=== PATIENT | male | born 1955 | race African-American/Black ===

== ENCOUNTER → 2017-05-22 | Outpatient (CLI) | payer OTHER ==
--- NOTE | 2017-05-22 12:32 | XR ---
EXAMINATION TYPE: XR chest 2V DATE OF EXAM: 05/22/2017 COMPARISON: 03/23/2015 HISTORY: Chronic cough TECHNIQUE: Frontal and lateral views of the chest are obtained. FINDINGS: There is no focal air space opacity, pleural effusion, or pneumothorax seen. The cardiac silhouette size is within normal limits. The osseous structures are intact. Multilevel moderate degenerative changes of the thoracic spine are noted as well as partial visualiza tion of cervical fusion device. IMPRESSION: No acute cardiopulmonary process.
== END | disposition home or self-care (01) ==
LOC: RADXRMAIN 09:26
PROVIDERS: ATTEND Family Medicine
DX: Z00.00 Encounter for general adult medical examination without abnormal findings (principal)
CPT/HCPCS: 71020

== ENCOUNTER 2017-06-16 22:43 | Emergency (ER) | payer OTHER ==
[2017-06-16 22:54] VITALS: TEMP 98.1
[2017-06-16] MEDS ORDERED: methylPREDNISolone SOD SUCCI 125 MG/2 ML VIAL IM STA (23:11)
[2017-06-16] MEDS ORDERED: HYDROmorphone 1 MG/ML 1 ML SYRINGE IM STA (23:11)
--- NOTE | 2017-06-16 23:17 | ED ---
General Adult HPI - General Source: patient, family, RN notes reviewed, old records reviewed Mode of arrival: EMS Limitations: physical limitation <River Cruz - Last Filed: 06/16/17 23:12> <Reji Burk - Last Filed: 06/17/17 06:53> - General Chief complaint: Back Pain/Injury Stated complaint: Back/Hip Pain Time Seen by Provider: 06/16/17 22:56 - History of Present Illness Initial comments: Chief complaint and history of present illness an 62-year-old male here with his . The patient reports that he was lifting some trays of food. And developed left sciatic pain that radiates down the left leg to the foot. Patient cannot stand upright. He can lean over without pain though. He has had sciatic pain on the right side in the past. She's also been seeing his chiropractor for relief of his right side but now his left side hurts. Patient does not have any difficulty urinating have bowel movements she does not have foot drop. (River Cruz) - Related Data Home Medications Medication Instructions Recorded Confirmed Ibuprofen [Advil] 600 mg PO Q8HR PRN 06/16/17 06/16/17 Ibuprofen/Diphenhydramine HCl 2 cap PO HS PRN 06/16/17 06/16/17 [Advil Pm Liqui-Gels] Previous Rx's Medication Instructions Recorded Ibuprofen [Motrin] 600 mg PO Q8HR PRN #20 tab 06/17/17 Methocarbamol [Robaxin-750] 750 mg PO TID PRN #30 tablet 06/17/17 Allergies Allergy/AdvReac Type Severity Reaction Status Date / Time Penicillins AdvReac Vomiting Verified 06/16/17 23:03 Review of Systems ROS Other: All systems not noted in ROS Statement are negative. <River Cruz - Last Filed: 06/16/17 23:12> ROS Other: All systems not noted in ROS Statement are negative. <Reji Burk - Last Filed: 06/17/17 06:53> ROS Statement: Those systems with pertinent positive or pertinent negative responses have been documented in the HPI. Review of systems. Patient denies any headache or visual acuity changes no chest pain or shortness of breath. He has left sciatic distribution pain radiates down the lateral aspect of his left leg to his foot. Acute onset over the last several hours. This started after lifting heavy food containers. All systems are reviewed. Past medical problems arthritic problems leading to surgery on his cervical spine and lumbar spine. Is also had bilateral carpal tunnel and bilateral ulnar nerve releases. Patient otherwise denies high blood pressure heart disease or diabetes. Family history several pupils cancer. Patient has ALLERGIES to penicillin. Denies smoking denies drinking. (River Cruz) Past Medical History Additional Past Medical History / Comment(s): carpal tunnel, History of Any Multi-Drug Resistant Organisms: None Reported Past Surgical History: Orthopedic Surgery Additional Past Surgical History / Comment(s): neck, knee surgery,back surgery, ulnar nerve surgery. Past Psychological History: No Psychological Hx Reported Smoking Status: Never smoker Past Alcohol Use History: None Reported Past Drug Use History: None Reported <River Cruz - Last Filed: 06/16/17 23:12> General Exam Limitations: physical limitation <River Cruz - Last Filed: 06/16/17 23:12> <Reji Burk - Last Filed: 06/17/17 06:53> - General Exam Comments Initial Comments: General: The patient is awake and alert, moderate distress because of acute exacerbation of left sciatic distribution pain. Vital signs temperature 98.1 pulse 75 respiratory rate 17 pulse ox 99% room air blood pressure 179/105. The patient is in significant amount of discomfort. This be rechecked after his pain is managed. Neck: The neck is supple, there is no tenderness . Cardiovascular: Denies any chest pain or palpitations. Respiratory: Denies any shortness of breath or difficulty breathing. Gastrointestinal: No abdominal pain, no nausea no vomiting no diarrhea. Appetite good. Back: Moderate to severe left sciatic distribution pain. Increases when he tries to stand. Decreases when he leans forward. No foot drop. Denies any difficulty with urinating or bowel movements. Musculoskeletal: Left sciatica. Neurological: Left sciatica, no other complaints. Skin, no evidence of any rash, early shingles was discussed. (River Cruz) Vital Signs 06/16/17 06/17/17 22:48 02:13 Temperature 98.1 F Pulse Rate 75 82 Respiratory 17 18 Rate Blood Pressure 179/105 177/90 O2 Sat by Pulse 99 98 Oximetry Medical Decision Making <River Cruz - Last Filed: 06/16/17 23:12> <Reji Burk - Last Filed: 06/17/17 06:53> - Medical Decision Making I receive this patient has a sign out, to review his x-rays. There does not appear to be any acute fracture. I reevaluated the patient, and he does have pain in the lumbar area with associated tenderness. It does come on when he attempts to straighten. He is not having any abdominal tenderness. No signs of cauda equina. Discussed appropriate follow-up as well as signs and symptoms requiring emergent ER evaluation and also follow-up with the back specialist. (Reji Burk) Disposition <River Cruz - Last Filed: 06/16/17 23:12> <Reji Burk - Last Filed: 06/17/17 06:53> Clinical Impression: Acute back pain, Hypertension Disposition: HOME SELF-CARE Condition: Good Instructions: Acute Low Back Pain (ED), Hypertension (ED) Prescriptions: Ibuprofen [Motrin] 600 mg PO Q8HR PRN #20 tab PRN Reason: Pain Methocarbamol [Robaxin-750] 750 mg PO TID PRN #30 tablet PRN Reason: pain Referrals: River Cotto DO [Primary Care Provider] - 1-2 days
[2017-06-16] MEDS ORDERED: ONDANSETRON ODT 4 MG TAB PO STA (23:39)
[2017-06-17] MEDS ORDERED: KETOROLAC 30 MG/ML 1 ML VIAL IM STA (00:50)
--- NOTE | 2017-06-17 01:54 | XR ---
EXAM: XR Lumbar Spine, 2 or 3 Views CLINICAL HISTORY: Left-sided neck pain TECHNIQUE: Frontal and lateral views of the lumbar spine. COMPARISON: No relevant prior studies available. FINDINGS: Vertebrae: No acute fracture. Normal alignment. Disc spaces: Degenerative changes. Soft tissues: Unremarkable. IMPRESSION: No acute findings.
[2017-06-17 02:14] VITALS: BP 177/90; PULSE 82; RESP 18
[2017-06-17] MEDS ORDERED: ORPHENADRINE 30 MG/ML 2 ML VIAL IM STA (02:19)
== END 2017-06-17 02:35 | disposition home or self-care (01) ==
LOC: EC 22:43
DX: M54.9 Dorsalgia, unspecified (principal); I10 Essential (primary) hypertension; Z88.0 Allergy status to penicillin
CPT/HCPCS: 72100; 99284; 96372 ×4; J2360; J2930; J1885; J1170

== ENCOUNTER → 2017-07-03 | Outpatient (CLI) | payer OTHER ==
--- NOTE | 2017-07-03 12:26 | MR ---
EXAMINATION TYPE: MR lumbar spine wo/w con DATE OF EXAM: 07/03/2017 COMPARISON: Lumbar spine x-ray June 17, 2017. HISTORY: Radiculopathy Lumbar region per order. Back pain into left buttocks and thigh with history o f surgery 2000 per patient. TECHNIQUE: Multiplanar, multisequence images of the lumbar spine is performed without and with IV contrast, util izing 10 mL intravenous Gadavist FINDINGS: Sagittal images of the lumbar spine show vertebral body heights to appear satisfactory. The re is slight grade 1 retrolisthesis of L2 on L3. Multilevel disc desiccation is present. There is carlos rly moderate disc space narrowing L2-L3 level. Multilevel posterior disc herniations are seen on sagi ttal images. The conus medullaris is normal in position and signal ending at T12-L1 disc space level. The bone marrow signal intensity is within normal limits. There is mild to moderate multilevel ante rior spurring. No suspicious postcontrast enhancement is seen. Axial images show the T12-L1 level to appear within normal limits. Axial images at L1-L2 level show moderate broad disc bulge effacing anterior thecal sac on axial imag e 23 and causing moderate right and mild left-sided inferior neural foraminal narrowing. Axial images at L2-L3 level show severe broad disc bulge and mild to moderate facet degenerative maldonado ges bilaterally. There is effacement of the anterior and posterior lateral thecal sac. There is left- sided laminectomy defect suspected on axial image 18. There is moderate to severe right and moderate left-sided neural foraminal narrowing noted. Axial images at L3-L4 level show moderate broad disc bulge effacing anterior thecal sac. There is mil d facet degenerative changes bilaterally effacing posterior lateral thecal sac. There is moderate to severe bilateral neural foraminal narrowing at this level identified. Axial images at L4-L5 level show moderate broad-based posterior disc protrusion and mild/moderate fac et degenerative changes bilaterally. There is severe left-sided and moderate right-sided neural miki inal narrowing. Encroachment on left L4 nerve is felt present. There is enhancing surrounding tissue noted on postcontrast images. For reference sagittal images 2. Axial images at L5-S1 level show mild facet degenerative changes bilaterally. There is moderate to se salvador broad based posterior disc protrusion. There is some effacement the anterior thecal sac. There i s severe right and moderate left-sided neural foraminal narrowing. There is encroachment on right L5 nerve seen on sagittal image 11. There are central simple appearing parapelvic cysts in left kidney noted. IMPRESSION: Multilevel degenerative changes mid to lower lumbar spine as detailed above, attention to L4-L5 level where degenerative changes are felt to be causing severe left-sided neural foraminal kyle rowing encroachment on the left L4 nerve. Surrounding enhancement suggests scar tissue at this level.
== END | disposition home or self-care (01) ==
LOC: RADMRIMAIN 10:35
PROVIDERS: ATTEND Family Medicine
DX: M99.73 Connective tissue and disc stenosis of intervertebral foramina of lumbar region (principal); M47.817 Spondylosis without myelopathy or radiculopathy, lumbosacral region
CPT/HCPCS: 82565; 72158; A9581

== ENCOUNTER 2017-07-14 08:08 | Emergency (ER) | payer OTHER ==
[2017-07-14 08:19] VITALS: PULSE 100
[2017-07-14] MEDS ORDERED: PROMETHAZ-COD 6.25-10 MG/5 ML 5 ML CUP PO STA (08:47)
[2017-07-14] MEDS ORDERED: IBUPROFEN 600 MG TAB PO STA (08:47)
--- NOTE | 2017-07-14 09:03 | ED ---
General Adult HPI - General Chief complaint: Upper Respiratory Infection Stated complaint: Cough Time Seen by Provider: 07/14/17 08:33 Source: patient, RN notes reviewed Mode of arrival: ambulatory Limitations: no limitations - History of Present Illness Initial comments: Patient is 62-year-old male who presents emergency room today with chief complaint of cough congestion that started 3 days ago. Patient does admit to increased cough congestion with sputum production. He states that he's had some rhinorrhea. He does admit to coughing so hard that he feels like his muscles in his abdomen or sore. Patient does not to chills and body aches. He admits that at this time he feels that if he raises his head he cannot control his cough as well as when he kicked his head down to his chin to his chest. He states he feels he is able to control his coughing bouts. Patient states he has been coughing very hard last few days and now has abdominal pain when he does cough. States the pain is not there without coughing. He states feels sore to him like muscles. Patient denies any shortness of breath, chest pain, back pain, nausea or vomiting, numbness or tingling, dysuria or hematuria, headaches or visual changes, or any other complaints. - Related Data Home Medications Medication Instructions Recorded Confirmed Ibuprofen [Advil] 400 mg PO Q8HR PRN 06/16/17 07/14/17 Loratadine [Claritin] 10 mg PO DAILY 07/14/17 07/14/17 traMADol HCL [Ultram] 50 mg PO DAILY PRN 07/14/17 07/14/17 Previous Rx's Medication Instructions Recorded Azithromycin [Zithromax Z-pack] 0 mg PO DIRECTED #6 tab 07/14/17 Lidocaine Viscous 2% [Xylocaine 5 ml MUCOUS MEM QID #50 ml 07/14/17 Viscous] Eyiu-Yysc-Qwc 6.25-5-10Mg/5Ml 5 ml PO Q4-6H 5 Days ml 07/14/17 [Phenergan VC with Codeine] predniSONE 50 mg PO DAILY #5 tab 07/14/17 Allergies Allergy/AdvReac Type Severity Reaction Status Date / Time Penicillins AdvReac Vomiting Verified 07/14/17 09:18 Review of Systems ROS Statement: Those systems with pertinent positive or pertinent negative responses have been documented in the HPI. ROS Other: All systems not noted in ROS Statement are negative. Past Medical History Additional Past Medical History / Comment(s): carpal tunnel, History of Any Multi-Drug Resistant Organisms: None Reported Past Surgical History: Orthopedic Surgery Additional Past Surgical History / Comment(s): neck, knee surgery,back surgery, ulnar nerve surgery. Past Psychological History: No Psychological Hx Reported Smoking Status: Never smoker Past Alcohol Use History: None Reported Past Drug Use History: None Reported General Exam - General Exam Comments Initial Comments: General: The patient is awake and alert, in no distress, and does not appear acutely ill. Eye: Pupils are equal, round and reactive to light, extra-ocular movements are intact. No nystagmus. There is normal conjunctiva bilaterally. No signs of icterus. Ears, nose, mouth and throat: There are moist mucous membranes and no oral lesions. Neck: The neck is supple, there is no tenderness or JVD. Cardiovascular: There is a regular rate and rhythm. No murmur, rub or gallop is appreciated. Respiratory: Lungs are clear to auscultation, respirations are non-labored, breath sounds are equal. No wheezes, stridor, rales, or rhonchi. Gastrointestinal: Soft, non-distended, non-tender abdomen without masses or organomegaly noted. There is no rebound or guarding present. No CVA tenderness. Bowel sounds are unremarkable. Musculoskeletal: Normal ROM, no tenderness. Strength 5/5. Sensation intact. Pulses equal bilaterally 2+. Neurological: A&O x 3. CN II-XII intact, There are no obvious motor or sensory deficits. Coordination appears grossly intact. Speech is normal. Skin: Skin is warm and dry and no rashes or lesions are noted. Psychiatric: Cooperative, appropriate mood & affect, normal judgment. Limitations: no limitations Course Vital Signs 07/14/17 07/14/17 08:14 08:47 Temperature 101.1 F H Pulse Rate 100 Respiratory 22 20 Rate Blood Pressure 139/78 O2 Sat by Pulse 97 Oximetry Medical Decision Making - Medical Decision Making Patient reexamined at this time shows no signs of distress. He doesn't want to some improvement of her medications given here the emergency room. Patient chest x-rays negative for any sign of pneumonia. Patient's influenza is negative. Patient's had cough sputum production. Will be covered with a bronchitis also placed on steroids and azithromycin. Given cough medication of Phenergan codeine go home with. It isn't increased irritation to the back of the throat and soreness from coughing so hard. Will be given some lidocaine to swish and swallow. Advised to follow-up with family doctor in the next 2 days return here to the emergency room symptoms increase worsen. Is advised continued Tylenol and his Advil at home for fever control. - Lab Data Lab Results 07/14/17 Range/Units 08:53 Influenza Type A RNA Not Detected (Not Detectd) Influenza Type B (PCR) Not Detected (Not Detectd) Disposition Clinical Impression: Acute bronchitis Disposition: HOME SELF-CARE Condition: Good Instructions: Acute Bronchitis (ED) Additional Instructions: Please use medication as discussed. Please follow-up with family doctor in the next 2 days of symptoms have not improved. Please return to emergency room if the symptoms increase or worsen or for any other concerns. Prescriptions: Azithromycin [Zithromax Z-pack] 0 mg PO DIRECTED #6 tab Lidocaine Viscous 2% [Xylocaine Viscous] 5 ml MUCOUS MEM QID #50 ml predniSONE 50 mg PO DAILY #5 tab Viko-Tsbk-Oef 6.25-5-10Mg/5Ml [Phenergan VC with Codeine] 5 ml PO Q4-6H 5 Days ml Referrals: River Cotto DO [Primary Care Provider] - 1-2 days Time of Disposition: 09:36
--- NOTE | 2017-07-14 09:14 | XR ---
EXAMINATION TYPE: XR chest 2V DATE OF EXAM: 07/14/2017 HISTORY: cough. REFERENCE: Previous study dated 05/22/2017. FINDINGS: The lungs are clear. Pleural space are clear. Heart size upper limits of normal. IMPRESSION: NO ACUTE INTRATHORACIC ABNORMALITY.
[2017-07-14 09:15] VITALS: RESP 20
[2017-07-14 10:05] VITALS: BP 137/77; TEMP 101.7
== END 2017-07-14 10:05 | disposition home or self-care (01) ==
LOC: EC 08:08
DX: J20.9 Acute bronchitis, unspecified (principal); Z79.899 Other long term (current) drug therapy; Z88.0 Allergy status to penicillin
CPT/HCPCS: 71046; 87502; 99283

== ENCOUNTER → 2019-05-20 | Outpatient (CLI) | payer MEDICARE, OTHER ==
--- NOTE | 2019-05-21 07:04 | XR ---
EXAMINATION TYPE: XR chest 2V DATE OF EXAM: 05/20/2019 COMPARISON: 07/14/2017 HISTORY: Shortness of breath TECHNIQUE: Frontal and lateral views of the chest are obtained. FINDINGS: Scattered senescent parenchymal changes noted. Hyperinflation compatible with COPD. No evidence for infiltrate. No evidence for atelectasis. Heart size is stable. Mediastinal structures are stable and grossly unremarkable. No evidence for hilar prominence. Degenerative changes dorsal spine. IMPRESSION: 1. No evidence for acute pulmonary disease.
== END | disposition home or self-care (01) ==
LOC: RADXRMAIN 16:04
PROVIDERS: ATTEND Family Medicine
DX: R05 Cough (principal)
CPT/HCPCS: 71046

== ENCOUNTER 2019-06-04 12:26 | Day surgery (SDC) | payer MEDICARE, OTHER ==
[2019-06-02 17:39] VITALS: BMI 33.2
[~2019-06-04 12:26] MED LIST: LACTATED RINGERS 1,000 ML IV SCH
[2019-06-04 13:42] VITALS: TEMP 97.7
[2019-06-04] MEDS ORDERED: LIDOCAINE 1% 20 ML VIAL (10MG/ML) FOR IV START INTRADERMA ONE (13:53)
[2019-06-04] MEDS ORDERED: PROPOFOL 10 MG/ML 20 ML VIAL IV ONE (14:05)
[2019-06-04] MEDS ORDERED: LIDOCAINE 1% INJ 10MG/ML (20 ML MDV) ONE (14:05)
--- NOTE | 2019-06-04 14:14 | P.PCN ---
Date of Procedure: 06/04/19 Procedure(s) Performed: BRIEF HISTORY: Patient is a 64-year-old, pleasant, white male, scheduled for an upper endoscopy as a part of value should of chronic cough for the last 6 months duration. He was started on omeprazole 20 mg twice daily she has been taking as needed with some improvement in his symptoms. He scheduled for an upper endoscopy to evaluate for GERD. PROCEDURE PERFORMED: Esophagogastroduodenoscopy with biopsy PREOPERATIVE DIAGNOSIS: [Chronic cough of 6 months duration IV sedation per anesthesia. PROCEDURE: After informed consent was obtained, the patient was brought into the endoscopy unit. IV sedation was administered by Anesthesia under continuous monitoring. Initially the Olympus GIF-140 video endoscope was inserted into the mouth. Esophagus intubated without any difficulty. It was gradually advanced into the stomach and duodenum and carefully examined. The bulb and the second part of the duodenum appeared normal. The scope at this time was withdrawn to the stomach, adequately insufflated with air, and upon careful examination, mucosa of the antrum had minimal erythema in the prepyloric area which was biopsied. The , body, cardia and the fundus appeared normal. The scope was then withdrawn into the esophagus. The GE junction was located at 39 cm from the i ncisors. The esophagus appeared normal. There were no erosions or ulcerations seen , biopsies were done from the distal esophagusand the patient tolerated the procedure well. IMPRESSION: 1. Minimal antral gastritis 2. No evidence of esophagitis or Garcia's esophagus. RECOMMENDATIONS: The findings of this examination were discussed with the patient as well as his family. He was advised to follow with the biopsy results. He suggested that he continue with omeprazole 20 mg twice daily half hour before breakfast and dinnertime and follow antireflux measures. He'll be seen in office in 3 months..
[2019-06-04] MEDS ORDERED: IV FLUID CONTINUATION 1,000 ML IV ONE (14:16)
[2019-06-04 14:43] VITALS: BP 152/81; PULSE 78; RESP 18
== END 2019-06-04 15:12 | disposition home or self-care (01) ==
LOC: ORWHC2ENDO 12:26
PROVIDERS: ATTEND Internal Medicine Gastroenterology
DX: K21.9 Gastro-esophageal reflux disease without esophagitis (principal); K29.50 Unspecified chronic gastritis without bleeding; E66.9 Obesity, unspecified; Z68.33 Body mass index [BMI] 33.0-33.9, adult; Z88.0 Allergy status to penicillin; Z79.899 Other long term (current) drug therapy; Z79.1 Long term (current) use of non-steroidal anti-inflammatories (NSAID); Z98.890 Other specified postprocedural states
CPT/HCPCS: 88305; 43239; J2001; J2704

== ENCOUNTER → 2019-07-28 | Outpatient (CLI) | payer MEDICARE, OTHER ==
[2019-07-28 12:54] LABS: African American GFR (CKD) >90 (>60 ml/min/1.73 sqM); Blood Urea Nitrogen 11 mg/dL (9-20); Non-African American GFR(CKD) >90 (>60 ml/min/1.73 sqM)
--- NOTE | 2019-07-28 13:50 | CT ---
EXAMINATION TYPE: CT chest w con DATE OF EXAM: 07/28/2019 COMPARISON: None HISTORY: Cough and loss of voice. CT DLP: 441.5 mGycm Automated exposure control for dose reduction was used. CONTRAST: CT scan of the chest is performed with IV Contrast, patient injected with 100 mL of Isovue M300. FINDINGS: LUNGS: The lungs are grossly clear, there is no concerning parenchymal mass or nodule identified. T here is no pleural effusion or pneumothorax seen. The tracheobronchial tree is patent. MEDIASTINUM: There are no greater than 1 cm hilar or mediastinal lymph nodes. No pericardial effusi on is seen. Thoracic aorta is of normal caliber. The heart is not enlarged. UPPER ABDOMEN: No significant abnormality appreciated. OTHER: Fullness of a partially imaged left renal collecting system. IMPRESSION: No distinct abnormality of the lungs at this time.
== END | disposition home or self-care (01) ==
LOC: RADCTMAIN 11:54
PROVIDERS: ATTEND Internal Medicine
DX: R05 Cough (principal); Z88.0 Allergy status to penicillin
CPT/HCPCS: 82565; 84520; 71260; 36415; Q9967

== ENCOUNTER 2019-07-30 11:03 | Day surgery (SDC) | payer MEDICARE, OTHER ==
[2019-07-29 09:40] VITALS: BMI 33.2
[~2019-07-30 11:03] MED LIST changes: +ALBUTEROL NEB (CONC) 2.5 MG/0.5 ML INHALATION ONE; +LIDOCAINE 1% 20 ML VIAL (10MG/ML) FOR IV START INTRADERMA PRN; +LIDOCAINE 2% (PF) 20 MG/ML 5 ML VIAL INHALATION ONE; +LIDOCAINE VISCOUS 300 MG/15 ML CUP MUCOUS MEM ONE; +SODIUM CHLORIDE 0.9% 1,000 ML IV SCH
[2019-07-30 11:36] VITALS: RESP 16; TEMP 98
[2019-07-30] MEDS ORDERED: KETAMINE 10 MG/ML 20 ML VIAL ONE (12:11)
[2019-07-30] MEDS ORDERED: MIDAZOLAM 2 MG/2 ML VIAL ONE (12:11)
[2019-07-30] MEDS ORDERED: fentaNYL (PF) 50 MCG/ML 2 ML AMP ONE (12:11)
[2019-07-30] MEDS ORDERED: PROPOFOL 10 MG/ML 20 ML VIAL IV ONE (12:11)
[2019-07-30 13:08] VITALS: BP 133/71; PULSE 94
--- NOTE | 2019-07-30 13:08 | PCN ---
PROCEDURE NOTE PROCEDURE: Bronchoscopy, bronchoalveolar lavage of the left lower lobe, lingula, and left upper lobe, and brushings of the posterior tracheal wall, washings of the posterior tracheal wall, and one biopsy of the posterior tracheal wall. PREOPERATIVE DIAGNOSIS: Chronic cough. POSTOPERATIVE DIAGNOSES: Tracheobronchomalacia, suspicious posterior tracheal wall lesion, and tracheal bronchomalacia. ANESTHESIA USED: IV conscious sedation. PROCEDURE: The patient was prepared according to the bronchoscopy protocol. The O2 was applied via nasal cannula. We monitored his O2 saturation continuously, blood pressure was intermittently monitored, and cardiac rhythm was continuously monitored. After adequate IV conscious sedation, the left naris was anesthetized with topical lidocaine. Then the bronchoscope was inserted through the left naris down to the area of the vocal cords, which were noted to be patent. Pictures of the vocal cords were taken, and there was no evidence of any vocal cord pathology. Then, lidocaine was applied over the vocal cords, and the bronchoscope was advanced further down, thorough examination was done of the trachea, aurora, right upper lobe, right middle lobe, right lower lobe, left upper lobe lingula and left lower lobe. Minimal purulent secretions were noted in the lingula and left lower lobe. These were lavaged. However, there was more concern about posterior necrotic lesion noted on the posterior membranous wall of the trachea, mid tracheal area. Brushings of that area were done. Washings of the area were also done, and biopsy x1 was done. No more biopsies were done because visibility was poor from oozing, and could not visualize the posterior lesion with the blood in the airways. Again, the lesion on the posterior wall of the trachea was suspicious, it measured 1.5 x 1.0 cm in size, and seems to be a bit necrotic in nature and slightly raised. The procedure was well tolerated, no evidence of any immediate complications. MMODL / IJN: [id number] /
[2019-07-30 17:09] LABS: Appearance,BF Bloody; Color,BF Red; Nucleated Cells, Body Fluid 50 /uL; RBC, Body Fluid 21950 /uL
[2019-07-30 17:56] LABS: Mononuclear WBC,Body Fluid 12 %; Polynuclear WBC,Body Fluid 72 %; Total Cells Counted,Body Fluid 25
== END 2019-07-30 13:26 | disposition home or self-care (01) ==
LOC: ORWHC2ENDO 11:03
PROVIDERS: ATTEND Internal Medicine
DX: L83 Acanthosis nigricans (principal); R05 Cough; K21.9 Gastro-esophageal reflux disease without esophagitis; R49.0 Dysphonia; J39.8 Other specified diseases of upper respiratory tract; J98.09 Other diseases of bronchus, not elsewhere classified; M19.90 Unspecified osteoarthritis, unspecified site; Z83.3 Family history of diabetes mellitus; Z80.8 Family history of malignant neoplasm of other organs or systems; Z79.899 Other long term (current) drug therapy; Z79.1 Long term (current) use of non-steroidal anti-inflammatories (NSAID); Z88.0 Allergy status to penicillin; J30.9 Allergic rhinitis, unspecified
CPT/HCPCS: 94640; 88104; 88108; 88305; 89050; 87070; 87205; 31625; 31623; 31624; J2250; J3010; J2704; J2001

== ENCOUNTER → 2019-08-05 | Outpatient (CLI) | payer MEDICARE, OTHER ==
[2019-08-05 16:40] LABS: Basophils % (A) 1 %; Eosinophils # (A) 0.2 k/uL (0-0.7); Eosinophils % (A) 3 %; HCT 37.7 % (39.0-53.0); HGB 12.2 gm/dL (13.0-17.5); Lymphocytes # (A) 2.2 k/uL (1.0-4.8); Lymphocytes % (A) 47 %; MCHC 32.4 g/dL (31.0-37.0); MCV 89.5 fL (80.0-100.0); Mean Platelet Volume 7.4; Monocytes # (A) 0.3 k/uL (0-1.0); Monocytes % (A) 5 %; Neutrophils # (A) 1.9 k/uL (1.3-7.7); Neutrophils % (A) 40 %; Platelet Count 318 k/uL (150-450); RBC 4.21 m/uL (4.30-5.90); RDW 12.9 % (11.5-15.5); WBC 4.6 k/uL (3.8-10.6)
[2019-08-05 20:12] LABS: Total Eosinophil Count 171 #EOS/uL (150-300)
== END | disposition home or self-care (01) ==
LOC: LABWHC1 15:31
PROVIDERS: ATTEND Internal Medicine
DX: R05 Cough (principal)
CPT/HCPCS: 36415; 85008; 85025

== ENCOUNTER → 2019-09-11 | Day surgery (SDC) | payer MEDICARE, OTHER ==
[2019-09-10 09:39] VITALS: BMI 33.5
[~2019-09-11] MED LIST changes: +KETAMINE 10 MG/ML 20 ML VIAL ONE; -LIDOCAINE 1% 20 ML VIAL (10MG/ML) FOR IV START INTRADERMA PRN; +LIDOCAINE 1% INJ 10MG/ML (20 ML MDV) ONE; +MIDAZOLAM 2 MG/2 ML VIAL ONE; +PROPOFOL 10 MG/ML 20 ML VIAL IV ONE; +Pre Op ABX Message 1 EACH MISC MISCELLANE ONE; +fentaNYL (PF) 50 MCG/ML 2 ML AMP ONE
[2019-09-11 11:51] VITALS: TEMP 97.9
--- NOTE | 2019-09-11 12:50 | PCN ---
PROCEDURE NOTE OPERATIVE REPORT: Bronchoscopy and bronchial washings/random washings of the airways. PREOPERATIVE DIAGNOSIS: Chronic cough and previously noted abnormal lesion on the membranous trachea. POSTOPERATIVE DIAGNOSIS: Chronic cough and chronic bronchitis. ANESTHESIA USED: IV conscious sedation. PROCEDURE: The patient was placed in the supine position, he was prepared according the bronchoscopy protocol. O2 was applied via nasal cannula and Ventimask. We monitored his O2 saturation continuously. Blood pressure was intermittently monitored and cardiac rhythm was continuously monitored. After adequate IV conscious sedation, the bronchoscope was inserted through the left naris, advanced into the area of the vocal cords, which were noted to be patent. Lidocaine was applied over the vocal cords, and the bronchoscope was advanced further down to the trachea. Thorough examination of the trachea, and the previous abnormal lesion on the posterior wall of the trachea apparently has resolved compared to few weeks ago. Pictures of the trachea were taken. Then a thorough examination was done of the right upper lobe, right lower lobe, right lower lobe, left upper lobe, lingula and left lower lobe, no evidence of any endobronchial tumors or lesions. No evidence of any purulent secretions. Random washing was done from the different lobes and the fluid was sent for the different diagnostic studies. Procedure was well tolerated, and there was no evidence of any immediate complications. Again, pictures of the trachea were taken, and the previously abnormal lesion on the membranous trachea has resolved. MMODL / IJN: [id number] /
[2019-09-11 13:37] VITALS: BP 135/71; PULSE 79; RESP 16
[2019-09-11 18:36] LABS: Appearance,BF Hazy; Color,BF Colorless; Nucleated Cells, Body Fluid 180 /uL; RBC, Body Fluid 40 /uL
[2019-09-13 13:38] LABS: Polynuclear WBC,Body Fluid 97 %
[2019-09-13 13:39] LABS: Mononuclear WBC,Body Fluid 3 %
== END ==
LOC: ORWHC2ENDO 11:33
PROVIDERS: ATTEND Internal Medicine
DX: K21.9 Gastro-esophageal reflux disease without esophagitis (principal); R05 Cough; J38.3 Other diseases of vocal cords; J98.4 Other disorders of lung; J39.8 Other specified diseases of upper respiratory tract; Z98.890 Other specified postprocedural states; Z83.3 Family history of diabetes mellitus; Z80.9 Family history of malignant neoplasm, unspecified; Z79.1 Long term (current) use of non-steroidal anti-inflammatories (NSAID); Z79.899 Other long term (current) drug therapy; J30.9 Allergic rhinitis, unspecified; Z88.0 Allergy status to penicillin
CPT/HCPCS: 94640; 87798 ×3; 87496; 87498; 87529; 88108; 88305; 89050; 87252; 87502; 87634; 87070; 87205; 87102; 31622; J2250; J2001 ×2; J3010; J2704; 31624

== ENCOUNTER → 2020-07-27 | Outpatient (CLI) | payer MEDICARE ==
--- NOTE | 2020-07-27 11:29 | ECHOF ---
Referral Reason:R55.9 Syncope MEASUREMENTS -------- HEIGHT: 177.8 cm WEIGHT: 104.3 kg BP: RVIDd: 2.7 cm (< 3.3) IVSd: 1.3 cm (0.6 - 1.1) LVIDd: 4.2 cm (3.9 - 5.3) LVPWd: 1.3 cm (0.6 - 1.1) IVSs: 1.7 cm LVIDs: 2.8 cm LVPWs: 2.1 cm LAESV Index (A-L): 19.68 ml/m Ao Diam: 2.6 cm (2.0 - 3.7) AV Cusp: 1.9 cm (1.5 - 2.6) LA Diam: 2.4 cm (2.7 - 3.8) MV EXCURSION: 14.924 mm (> 18.000) MV EF SLOPE: 85 mm/s (70 - 150) EPSS: 0.8 cm MV E Adriano: 0.68 m/s MV DecT: 359 ms MV A Adriano: 0.76 m/s MV E/A Ratio: 0.89 AR PHT: 833 ms RAP: 5.00 mmHg RVSP: 29.66 mmHg FINDINGS -------- Sinus rhythm. This was a technically adequate study. The left ventricular size is normal. There is mild concentric left ventricular hypertrophy. Overa ll left ventricular systolic function is normal with, an EF between 55 - 60 %. The diastolic fillin g pattern is normal for the age of the patient 9.13. The right ventricle is normal in size. Normal LA size by volume 22+/-6 ml/m2. The right atrial size is normal. The aortic valve is trileaflet and appears structurally normal. Trace amount of aortic regurgitatio n. The mitral valve is normal. There is trace mitral regurgitation. The tricuspid valve appears structurally normal. Trace tricuspid regurgitation present. Right quang tricular systolic pressure is normal at < 35 mmHg. There is no pulmonic regurgitation present. The aortic root size is normal. Normal inferior vena cava with normal inspiratory collapse consistent with estimated right atrial pre ssure of 5 mmHg. There is no pericardial effusion. CONCLUSIONS -------- 1. There is mild concentric left ventricular hypertrophy. 2. Overall left ventricular systolic function is normal with, an EF between 55 - 60 %. 3. Trace amount of aortic regurgitation. 4. There is trace mitral regurgitation. 5. Trace tricuspid regurgitation present. 6. There is no pericardial effusion. SLIP CASTER: Annalise Viera RDCS
--- NOTE | 2020-07-27 11:39 | CT ---
EXAMINATION TYPE: CT brain wo/w con DATE OF EXAM: 07/27/2020 COMPARISON: None. HISTORY: Syncope CT DLP: 2434 mGycm Automated exposure control for dose reduction was used. CONTRAST: CT scan of the head is performed without and with IV Contrast, patient injected with 100 ml mL of Iso joseph 300. FINDINGS: Noncontrast images show no acute intracranial hemorrhage or midline shift. There is mild ve ntricular and sulcal prominence consistent with mild diffuse age-related atrophy. Postcontrast images show no suspicious enhancing mass. The globes are intact and the visualized sinuses are clear. No suspicious opacification mastoid air cells bilaterally. IMPRESSION: Fairly unremarkable study.
--- NOTE | 2020-07-27 13:21 | EST ---
EXERCISE STRESS AGE: 65 SEX: Male HT: 5'9"` WT: 507 lbs. PROTOCOL: Omar STAGE: 1 DURATION OF EXERCISE: 3 minutes HEART RATE REST: 66 BLOOD PRESSURE REST: 137/79 MAXIMUM HEART RATE ACHIEVED: 122 MAXIMUM BLOOD PRESSURE: 186/76 85% MPHR: 130 100% MPHR: 153 METS: 4.6 INDICATIONS: Short of breath. CLINICAL INFORMATION: Baseline rhythm is sinus mechanism, rate of 66, normal axis and intervals, normal electrocardiogram. Baseline blood pressure 137/79 mmHg. Patient exercised on Omar protocol for 3 minutes reaching peak rate 122 beats per minute which is equal 79% maximum predicted heart rate. Peak blood pressure 186/76 mmHg. Test was terminated secondary to fatigue. There was no chest pain. Electrocardiograph monitoring revealed no evidence of diagnostic ischemic ST deviation. CONCLUSION: 1. Poor exercise tolerance. 2. Nondiagnostic electrocardiograph stress testing secondary to the inability to achieve 85% maximum predicted heart rate. 3. If clinically indicated a pharmacological stress test will be helpful. MMODL / IJN: [id number] /
== END | disposition home or self-care (01) ==
LOC: RADCTMAIN 10:08
PROVIDERS: ATTEND Family Medicine
DX: I51.7 Cardiomegaly (principal)
CPT/HCPCS: 93017; 93306; 70470; Q9967

== ENCOUNTER → 2020-08-15 | Outpatient (CLI) | payer MEDICARE ==
[~2020-08-15] MED LIST changes: -ALBUTEROL NEB (CONC) 2.5 MG/0.5 ML INHALATION ONE; -KETAMINE 10 MG/ML 20 ML VIAL ONE; -LACTATED RINGERS 1,000 ML IV SCH; -LIDOCAINE 1% INJ 10MG/ML (20 ML MDV) ONE; -LIDOCAINE 2% (PF) 20 MG/ML 5 ML VIAL INHALATION ONE; -LIDOCAINE VISCOUS 300 MG/15 ML CUP MUCOUS MEM ONE; -MIDAZOLAM 2 MG/2 ML VIAL ONE; -PROPOFOL 10 MG/ML 20 ML VIAL IV ONE; -Pre Op ABX Message 1 EACH MISC MISCELLANE ONE; +REGADENOSON 0.4 MG/5 ML SYRINGE IV PRN; -SODIUM CHLORIDE 0.9% 1,000 ML IV SCH; -fentaNYL (PF) 50 MCG/ML 2 ML AMP ONE
--- NOTE | 2020-08-15 11:56 | NM ---
EXAMINATION TYPE: NM stress lexiscan cardiolite DATE OF EXAM: 08/15/2020 COMPARISON: NONE HISTORY: 65-year-old male R55, syncope TECHNIQUE: After the intravenous administration of 9.7 mCi Tc 99m Sestamibi - Cardiolite resting SPE CT images acquired 45 minutes post injection. The patient received 0.4mg Lexiscan, 25.8 mCi Tc 99m Sestamibi - Stress images obtained [address] injection FINDINGS: Review of stress and rest SPECT images demonstrates a fairly large area of fixed perfusion defect inv olving the inferior wall extending from the base to the cardiac apex. No distinct reversibility is se en. Gated analysis shows normal wall motion with an estimated left ventricular ejection fraction of 5 9 %. TID is high normal at 1.03. IMPRESSION: Large area of fixed perfusion defect involving the entire inferior wall could represent an old infarc t. It could in part relate to diaphragmatic attenuation artifact. Clinically correlate. No discrete r eversibility seen.
--- NOTE | 2020-08-16 09:00 | EST ---
EXERCISE STRESS AGE: 65 SEX: Male HT: 5'9" WT: 230 lbs. PROTOCOL: Lexiscan STAGE: N/A DURATION OF EXERCISE: 5 minutes HEART RATE REST: 57 BLOOD PRESSURE REST: 123/71 MAXIMUM HEART RATE ACHIEVED: 79 MAXIMUM BLOOD PRESSURE: 123/71 85% MPHR: 130 100% MPHR: 153 METS: N/A INDICATIONS: syncope CLINICAL INFORMATION: Baseline heart rate 57 beats per minute. Baseline blood pressure 123/71 mmHg. Baseline 12-lead ECG showed sinus mechanism with normal ST segments. The patient received Lexiscan infusion per protocol, and there was no ECG evidence for ischemia. No arrhythmias were noted. Normal heart rate and blood pressure response were noted during Lexiscan infusion. Nuclear portion will be reported separately. MMODL / IJN: [id number] /
== END | disposition home or self-care (01) ==
LOC: RADNMMAIN 07:54
PROVIDERS: ATTEND Family Medicine
DX: I51.0 Cardiac septal defect, acquired (principal); Z88.0 Allergy status to penicillin
CPT/HCPCS: 93017; 78452; A9500; J2785

== ENCOUNTER 2023-04-20 21:23 | Emergency (ER) | payer MEDICARE ==
[2023-04-20 21:40] VITALS: BP 165/84; PULSE 79; RESP 18; TEMP 97.9
[2023-04-20] MEDS ORDERED: ORPHENADRINE 30 MG/ML 2 ML VIAL IM STA (21:59)
[2023-04-20] MEDS ORDERED: predniSONE 20 MG TAB PO STA (21:59)
[2023-04-20] MEDS ORDERED: HYDROmorphone 1 MG/ML 1 ML SYRINGE IM STA (21:59)
--- NOTE | 2023-04-20 22:57 | ED ---
Neck Injury/Pain HPI - General Chief Complaint: Neck Pain/Injury Stated Complaint: neck pain Time Seen by Provider: 04/20/23 21:35 Mode of arrival: ambulatory Limitations: physical limitation - History of Present Illness Initial Comments: 68-year-old male with past medical history of chronic neck pain, cervical fusion who presents the emergency department reporting neck pain. States he is currently in therapy for his neck pain. He has not gone a couple of weeks due to Covid. He reports that he had physical therapy yesterday. They placed a TENS stimulator to his neck and applied lidocaine cream. States that after the physical therapy appointment he had relief for only a short period of time before the pain became significantly worse. He reports the pain is at the base of the skull on the left side and radiates up to the top of his head. It is causing him to have a headache. No visual changes. He has numbness and tingling that runs down into his left arm. He does have Hurst at home to take for pain control. States he has been taking the Hurst as directed but continues to have significant pain. He denies any thoracic or lumbar back pain. No fevers. No head trauma. No chiropractor manipulations of the neck. No other alleviating, precipitating or modifying factors - Related Data Home Medications Medication Instructions Recorded Confirmed Cetirizine HCl [Zyrtec] 10 mg PO DAILY PRN 06/02/19 09/11/19 Omeprazole [PriLOSEC] 20 mg PO DAILY 06/02/19 09/11/19 Ibuprofen/Diphenhydramine Cit 1 tab PO HS PRN 06/04/19 09/11/19 [Ibuprofen Pm Caplet] Acetaminophen [Tylenol Extra 500 - 1,000 mg PO DIRECTED PRN 09/10/19 09/11/19 Strength] Menthol [Goldsmith] 7.5 mg MM DIRECTED PRN 09/10/19 09/11/19 Previous Rx's Medication Instructions Recorded methocarbamoL [Robaxin-750] 750 mg PO QID PRN #25 tab 04/20/23 methylPREDNISolone Dose Pack 4 mg PO DIRECTED #21 tab 04/20/23 [Medrol Dose Pack] Allergies Allergy/AdvReac Type Severity Reaction Status Date / Time banana Allergy Rash/Hives Verified 04/20/23 21:36 amoxicillin AdvReac Vomiting Verified 04/20/23 21:36 Penicillins AdvReac Vomiting Verified 04/20/23 21:36 Review of Systems ROS Statement: Those systems with pertinent positive or pertinent negative responses have been documented in the HPI. ROS Other: All systems not noted in ROS Statement are negative. 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 History of Any Multi-Drug Resistant Organisms: None Reported Past Surgical History: Back Surgery, Orthopedic Surgery Additional Past Surgical History / Comment(s): neck surgery, rt knee arthroscopy, chano wrist carpal tunnel, ulnar nerve surgery chano elbows. EGD, colonoscopy. Bronchoscopy 07/30/19. Past Anesthesia/Blood Transfusion Reactions: No Reported Reaction Past Psychological History: No Psychological Hx Reported Past Alcohol Use History: None Reported Past Drug Use History: None Reported - Past Family History Mother Family Medical History: Cancer, Coronary Artery Disease (CAD), Diabetes Mellitus Additional Family Medical History / Comment(s): bowel cancer Sister(s) Family Medical History: Cancer Additional Family Medical History / Comment(s): x5 sisters General Exam Limitations: physical limitation General appearance: alert, in no apparent distress Head exam: Present: atraumatic, normocephalic, normal inspection Eye exam: Present: normal appearance, PERRL, EOMI. Absent: scleral icterus, conjunctival injection, periorbital swelling ENT exam: Present: normal exam, mucous membranes moist Neck exam: Present: tenderness (Patient has significant tenderness to palpation of the paraspinal muscles and left base of occiput. No midline pain. 5 out of 5 market research assistant strength). Absent: meningismus, lymphadenopathy Respiratory exam: Present: normal lung sounds bilaterally. Absent: respiratory distress, wheezes, rales, rhonchi, stridor Cardiovascular Exam: Present: regular rate, normal rhythm, normal heart sounds. Absent: systolic murmur, diastolic murmur, rubs, gallop, clicks GI/Abdominal exam: Present: soft, normal bowel sounds. Absent: distended, tenderness, guarding, rebound, rigid Extremities exam: Present: normal inspection, full ROM, normal capillary refill. Absent: tenderness, pedal edema, joint swelling, calf tenderness Back exam: Present: normal inspection Neurological exam: Present: alert, oriented X3, CN II-XII intact Psychiatric exam: Present: normal affect, normal mood Skin exam: Present: warm, dry, intact, normal color. Absent: rash Course Vital Signs 04/20/23 21:32 Temperature 97.9 F Pulse Rate 79 Respiratory 18 Rate Blood Pressure 165/84 O2 Sat by Pulse 97 Oximetry Medical Decision Making - Medical Decision Making Was pt. sent in by a medical professional or institution (, PA, AUTO WASHER, urgent care, hospital, or halfway...) When possible be specific @ -No Did you speak to anyone other than the patient for history (EMS, parent, family, police, friend...)? What history was obtained from this source @ -The patient does arrive with a friend who helps provide history Did you review nursing and triage notes (agree or disagree)? Why? @ -I reviewed and agree with nursing and triage notes Were old charts reviewed (outside hosp., previous admission, EMS record, old EKG, old radiological studies, urgent care reports/EKG's, halfway records)? Report findings @ -I reviewed past notes. Patient did visit the ER in 2014 and had an x-ray of his neck performed Differential Diagnosis (chest pain, altered mental status, abdominal pain women, abdominal pain men, vaginal bleeding, weakness, fever, dyspnea, syncope, headache, dizziness, GI bleed, back pain, seizure, CVA, palpatations, mental health, musculoskeletal)? @ -Differential Musculoskeletal Muscular strain, contusion, ligament sprain, fracture, arthritis, septic arthritis, bursitis, cellulitis, muscle spasm, nerve compression, DVT, arterial occlusion, herpes zoster, electrolyte abnormality, tumor.... This is not meant to be in all inclusive list EKG interpreted by me (3pts min.). @ -Not done X-rays interpreted by me (1pt min.). @ -None done CT interpreted by me (1pt min.). @ -None done U/S interpreted by me (1pt. min.). @ -None done What testing was considered but not performed or refused? (CT, X-rays, U/S, labs)? Why? @ -X-ray was considered however the patient has not had any trauma What meds were considered but not given or refused? Why? @ -None Did you discuss the management of the patient with other professionals (professionals i.e. , PA, AUTO WASHER, lab, RT, psych nurse, social media strategist, core machine tender, teacher, chief technology officer, porter sample case)? Give summary @ -No Was smoking cessation discussed for >3mins.? @ -No Was critical care preformed (if so, how long)? @ -No Were there social determinants of health that impacted care today? How? (Homelessness, low income, unemployed, alcoholism, drug addiction, transportation, low edu. Level, literacy, decrease access to med. care, prison, rehab)? @ -No Was there de-escalation of care discussed even if they declined (Discuss DNR or withdrawal of care, Hospice)? DNR status @ -No What co-morbidities impacted this encounter? (DM, HTN, Smoking, COPD, CAD, Cancer, CVA, ARF, Chemo, Hep., AIDS, mental health diagnosis, sleep apnea, morbid obesity)? @ -Chronic neck pain Was patient admitted / discharged? Hospital course, mention meds given and route, prescriptions, significant lab abnormalities, going to OR and other pertinent info. @ -1 arrival patient was placed into room 22. Thorough history and physical exam was performed. He was given a dose of prednisone, a 1 mg injection of Dilaudid and a 60 mg injection of Norflex. Patient is reevaluated and reports that his pain is improved at this time. He does feel comfortable going home. He is instructed to continue with physical therapy. Recommend that he see an orthopedic spine doctor for further treatment options. He will be provided with a prescription for a muscle relaxer however is instructed to take this spaced out from his pain medication. He will also be placed on prednisone. If he has any new or worsening symptoms he should return to the emergency room. Patient was agreeable to this plan and was discharged in stable condition Undiagnosed new problem with uncertain prognosis? @ -No Drug Therapy requiring intensive monitoring for toxicity (Heparin, Nitro, Insulin, Cardizem)? @ -No Were any procedures done? @ -No Diagnosis/symptom? @ -Acute exacerbation of chronic neck pain Acute, or Chronic, or Acute on Chronic? @ -Acute on chronic Uncomplicated (without systemic symptoms) or Complicated (systemic symptoms)? @ -Uncomplicated Side effects of treatment? @ -No Exacerbation, Progression, or Severe Exacerbation? @ -yes Poses a threat to life or bodily function? How? (Chest pain, USA, ID, pneumonia, PE, COPD, DKA, ARF, appy, cholecystitis, CVA, Diverticulitis, Homicidal, Suicidal, threat to staff... and all critical care pts) @ -No Disposition Clinical Impression: Neck pain, Cervical radiculopathy Disposition: HOME SELF-CARE Condition: Stable Instructions (If sedation given, give patient instructions): Chronic Neck Pain (DC) Additional Instructions: Take the muscle relaxer as needed. Please space it out from your Hurst by atleast 4 hours. Take the Medrol Dosepak as directed. I recommend you follow up with Dr. Story for further management of your pain Prescriptions: methylPREDNISolone Dose Pack [Medrol Dose Pack] 4 mg PO DIRECTED #21 tab methocarbamoL [Robaxin-750] 750 mg PO QID PRN #25 tab PRN Reason: Muscle Pain Is patient prescribed a controlled substance at d/c from ED?: No Referrals: River Cotto DO [Primary Care Provider] - 1-2 days Time of Disposition: 23:06
== END 2023-04-20 23:30 | disposition home or self-care (01) ==
LOC: EC 21:23
DX: M54.12 Radiculopathy, cervical region (principal); M54.2 Cervicalgia; M19.90 Unspecified osteoarthritis, unspecified site; K21.9 Gastro-esophageal reflux disease without esophagitis; Z88.0 Allergy status to penicillin; Z91.018 Allergy to other foods; Z79.899 Other long term (current) drug therapy
CPT/HCPCS: 99283; 96372 ×2; J2360; J1170; J7512

== ENCOUNTER → 2023-07-17 | Outpatient (CLI) | payer MEDICARE ==
--- NOTE | 2023-07-17 17:45 | US ---
EXAMINATION TYPE: US venous doppler duplex LE BI DATE OF EXAM: 07/17/2023 2:53 PM COMPARISON: NONE CLINICAL INDICATION: Male, 68 years old with history of I73.9 PERIPH VASC DISEASE; Leg pain and swell ing per patient. No redness. No hx DVT. SIDE PERFORMED: Bilateral TECHNIQUE: The lower extremity deep venous system is examined utilizing real time linear array sonog susanne with graded compression, doppler sonography and color-flow sonography. VESSELS IMAGED: Common Femoral Vein Deep Femoral Vein Greater Saphenous Vein * Femoral Vein Popliteal Vein Small Saphenous Vein * Proximal Calf Veins (* superficial vessels) Right Leg: Negative for DVT Left Leg: Negative for DVT IMPRESSION: No evidence for DVT within the bilateral lower extremities from the groin to the upper ca lves.
== END | disposition home or self-care (01) ==
LOC: RADUSWWP 14:15
PROVIDERS: ATTEND Family Medicine
DX: I73.9 Peripheral vascular disease, unspecified (principal)
CPT/HCPCS: 93970

== ENCOUNTER → 2024-04-22 | Outpatient (CLI) | payer MEDICARE ==
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
== END | disposition home or self-care (01) ==
LOC: RADMRIMAIN 13:37
PROVIDERS: ATTEND Orthopaedic Surgery Orthopaedic Surgery of the Spine
CPT/HCPCS: 72148

== ENCOUNTER → 2024-05-08 | Outpatient (CLI) | payer MEDICARE | END | disposition home or self-care (01) | LOC: LABPAT 13:36 | PROVIDERS: ATTEND Family Medicine | DX: Z01.818 Encounter for other preprocedural examination (principal); Z22.322 Carrier or suspected carrier of Methicillin resistant Staphylococcus aureus | CPT/HCPCS: 87070 ==

== ENCOUNTER → 2024-09-03 | Outpatient (CLI) | payer MEDICARE ==
[2024-09-03 11:21] LABS: INR 0.9 (<1.2); Partial Thromboplastin Time 24.7 sec (22.0-30.0); Prothrombin Time 10.6 sec (10.0-12.5)
[2024-09-03 15:02] LABS: Basophils # (A) 0.04 X 10*3/uL (0.00-0.10); Basophils % (A) 0.9 %; Eosinophils # (A) 0.21 X 10*3/uL (0.04-0.35); Eosinophils % (A) 4.9 %; HCT 39.6 % (39.6-50.0); HGB 12.5 g/dL (13.0-17.0); Immature Grans, Automated 0 %; Lymphocytes # (A) 2.19 X 10*3/uL (0.90-5.00); Lymphocytes % (A) 50.9 %; MCH 27.9 pg (27.0-32.0); MCHC 31.6 g/dL (32.0-37.0); MCV 88.4 FL (80.0-97.0); Monocytes # (A) 0.46 X 10*3/uL (0.20-1.00); Monocytes % (A) 10.7 %; NRBC Per 100 WBC 0 X 10*3/uL (0.00-0.01); Neutrophils % (A) 32.6 %; Platelet Count 307 X 10*3/uL (140-440); RBC 4.48 X 10*6/uL (4.40-5.60); RDW 12.6 % (11.5-14.5)
[2024-09-03 15:28] LABS: BUN/Creat Ratio 19.33 Ratio (12.00-20.00); Blood Urea Nitrogen 17.4 mg/dL (9.0-27.0); Chol/HDL Ratio 2.15 Ratio; Glucose 91 mg/dL (70-110); LDL Cholesterol,Calculated 59.5 mg/dL (0.0-131.0)
[2024-09-03 15:29] LABS: ALT 13 U/L (10-49); AST 16 U/L (14-35); Albumin 4.1 g/dL (3.8-4.9); Albumin/Globulin Ratio 1.37 Ratio (1.60-3.17); Alkaline Phosphatase 146 U/L (41-126); Calcium 9.5 mg/dL (8.7-10.3); Carbon Dioxide 23.4 mmol/L (21.6-31.8); Chloride 107 mmol/L (96-109); Potassium 4.7 mmol/L (3.5-5.5); Prostate Specific Antigen 0.48 ng/mL (0.000-6.500); Sodium 142 mmol/L (135-145); T4, Free (Free Thyroxine) 1.29 ng/dL (0.80-1.80); Total Bilirubin 0.6 mg/dL (0.3-1.2); Total Protein 7.1 g/dL (6.2-8.2)
== END | disposition home or self-care (01) ==
LOC: LABWHC1 10:07
PROVIDERS: ATTEND Nurse Practitioner Family
DX: Z01.812 Encounter for preprocedural laboratory examination (principal); K21.9 Gastro-esophageal reflux disease without esophagitis; N40.0 Benign prostatic hyperplasia without lower urinary tract symptoms; M19.012 Primary osteoarthritis, left shoulder
CPT/HCPCS: 36415; 80053; 80061; 82306; 83036; 84153; 84439; 84443; 85025; 85610; 85730

== ENCOUNTER → 2024-09-09 | Outpatient (CLI) | payer MEDICARE | END | disposition home or self-care (01) | LOC: LABWHC1 10:15 | PROVIDERS: ATTEND Nurse Practitioner Family | DX: Z01.812 Encounter for preprocedural laboratory examination (principal); M19.011 Primary osteoarthritis, right shoulder | CPT/HCPCS: 87070 ==